=== PATIENT | male | born 1935 | race African-American/Black ===

== ENCOUNTER 2017-08-27 17:31 | Emergency (ER) | payer MEDICARE ==
[~2017-08-27] VITALS: Ht 170.2 cm; Wt 90.0 kg
[~2017-08-27 17:31] MED LIST: OMEP20TA PO; TAMS0.4C67 PO; VERA120T3 PO
[2017-08-27 17:32] VITALS: BP 144/78; PULSE 95; RESP 16; TEMP 101.6; O2SAT 95
[2017-08-27] MEDS ORDERED: SODIUM CHLOR 0.9% 1000 ML INJ 1,000 ML IV SCH (17:42)
[2017-08-27 17:45] VITALS: O2SAT 96
[2017-08-27] MEDS ORDERED: TAMS0.4C4 PO (17:50)
[2017-08-27] MEDS ORDERED: OMEP20TA93 PO (17:50)
[2017-08-27] MEDS ORDERED: VERA1TAB17 PO (17:50)
[2017-08-27] MEDS ORDERED: ACETAMINOPHEN 325 MG TAB PO ONE (18:00)
--- NOTE | 2017-08-27 18:23 | PD ---
HPI Chief Complaint: General Weakness Time Seen by Provider: 17:41 Travel History International Travel<30 days: No Contact w/Intl Traveler<30days: No Traveled to known affect area: No History of Present Illness HPI 81-year-old male that presents to the ED for evaluation of fever and generalized weakness. Per patient he's been feeling "sick" for about 2 days now. He denies any cough or runny nose. He denies any other medical issues. Patient has bodyaches and pain in his muscles in his legs. He states that he will was seen by urologist recently and was told that he might have a urinary infection worker she was treated for this. 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 He has had no recent chemotherapy or radiation. Denies any sick contacts. He denies any other symptoms other than just feeling sick. He denies any abdominal pain. She is in bowel movement or urine. No recent travel. No chest pain or shortness of breath. No abdominal pain. Per patient the discomfort to his legs is 4 out of 10. He was told that he has an enlarged prostate but on his last recheck about a month ago he has had no issues other than problems with urine which are chronic for him. He denies any new medications. Other medical issues at this time. PFSH Past Medical History Arthritis: Yes Blood Disorders: No Cancer: Yes (LEUKEMIA) Cardiovascular Problems: Yes Chemotherapy: Yes (06/2014) Coronary Artery Disease: Yes Diabetes: Yes Diminished Hearing: No Gastrointestinal Disorders: Yes (GERD, ENLARGED SPLEEN) GERD: Yes Genitourinary: Yes (BPH) Hiatal Hernia: Yes Hypertension: Yes Respiratory: Yes (SLEEP APNEA/ CPAP) Sleep Apnea: Yes PNEUMOCCOCAL Vaccine (Year): 2008 Past Surgical History Other Surgery: Yes Social History Alcohol Use: No Tobacco Use: No (1969 09 PPD) Substance Use: No Allergies-Medications (Allergen,Severity, Reaction): Coded Allergies: No Known Allergies (Verified , 08/22/14) Reported Meds & Prescriptions Reported Meds & Active Scripts Active Cipro (Ciprofloxacin HCl) 500 Mg Tab 500 Mg PO BID 10 Days Reported Verapamil ER 24 HR (Verapamil HCl) 240 Mg Tab 180 Mg PO HS Tamsulosin (Tamsulosin HCl) 0.4 Mg Cap 0.4 Mg PO HS Omeprazole 20 Mg Tab 20 Mg PO DAILY Review of Systems Except as stated in HPI: all other systems reviewed are Neg Physical Exam Narrative GENERAL: SKIN: Warm and dry. HEAD: Atraumatic. Normocephalic. EYES: Pupils equal and round. No scleral icterus. No injection or drainage. ENT: No nasal bleeding or discharge. Mucous membranes pink and moist. Tongue is midline. No uvula deviation. TMs are clear with no sign of infection or perforation. No lymphadenopathy noted. Tonsils are normal and not swollen. NECK: Trachea midline. No JVD. CARDIOVASCULAR: Regular rate and rhythm. No murmurs, S3, S4. RESPIRATORY: No accessory muscle use. Clear to auscultation. Breath sounds equal bilaterally. GASTROINTESTINAL: Abdomen soft, non-tender, nondistended. Hepatic and splenic margins not palpable. MUSCULOSKELETAL: Extremities without clubbing, cyanosis, or edema. No obvious deformities. Full range of motion of the upper and lower extremities bilaterally. 2+ pulses bilaterally. NEUROLOGICAL: Awake and alert. No obvious cranial nerve deficits. Motor grossly within normal limits. Five out of 5 muscle strength in the arms and legs. Normal speech. PSYCHIATRIC: Appropriate mood and affect; insight and judgment normal. Data Data Last Documented VS Vital Signs Date Time Temp Pulse Resp B/P (MAP) Pulse Ox O2 Delivery O2 Flow Rate FiO2 08/27/17 20:31 99.1 08/27/17 19:07 89 18 99 Room Air Orders Orders Complete Blood Count With Diff (08/27/17 17:42) Comprehensive Metabolic Panel (08/27/17 17:42) Prothrombin Time / Inr (Pt) (08/27/17 17:42) Act Partial Throm Time (Ptt) (08/27/17 17:42) Urinalysis - C+S If Indicated (08/27/17 17:42) Iv Access Insert/Monitor (08/27/17 17:42) Ecg Monitoring (08/27/17 17:42) Oximetry (08/27/17 17:42) Sodium Chlor 0.9% 1000 Ml Inj (Ns 1000 M (08/27/17 17:42) Blood Culture (08/27/17 17:42) Lactic Acid Sepsis Protocol (08/27/17 17:42) Chest, Single Ap (08/27/17 ) Influenzae A/B Antigen (08/27/17 17:45) Acetaminophen (Tylenol) (08/27/17 18:00) Cath For Specimen (08/27/17 19:20) Urine Culture (08/27/17 19:04) Ciprofloxacin 400 Mg Premix (Cipro 400 M (08/27/17 20:30) Ed Discharge Order (08/27/17 20:23) Labs Laboratory Tests Test 08/27/17 17:53 08/27/17 17:55 08/27/17 19:04 Lactic Acid Level 1.3 mmol/L White Blood Count 12.7 TH/MM3 Red Blood Count 4.11 MIL/MM3 Hemoglobin 13.3 GM/DL Hematocrit 38.3 % Mean Corpuscular Volume 93.2 FL Mean Corpuscular Hemoglobin 32.4 PG Mean Corpuscular Hemoglobin Concent 34.8 % Red Cell Distribution Width 14.3 % Platelet Count 115 TH/MM3 Mean Platelet Volume 10.0 FL Neutrophils (%) (Auto) 83.4 % Lymphocytes (%) (Auto) 7.4 % Monocytes (%) (Auto) 9.1 % Eosinophils (%) (Auto) 0.0 % Basophils (%) (Auto) 0.1 % Neutrophils # (Auto) 10.6 TH/MM3 Lymphocytes # (Auto) 0.9 TH/MM3 Monocytes # (Auto) 1.2 TH/MM3 Eosinophils # (Auto) 0.0 TH/MM3 Basophils # (Auto) 0.0 TH/MM3 CBC Comment DIFF FINAL Differential Comment Prothrombin Time 11.2 SEC Prothromb Time International Ratio 1.1 RATIO Activated Partial Thromboplast Time 31.3 SEC Blood Urea Nitrogen 14 MG/DL Creatinine 1.07 MG/DL Random Glucose 129 MG/DL Total Protein 7.4 GM/DL Albumin 3.9 GM/DL Calcium Level 8.7 MG/DL Alkaline Phosphatase 64 U/L Aspartate Amino Transf (AST/SGOT) 14 U/L Alanine Aminotransferase (ALT/SGPT) 27 U/L Total Bilirubin 1.4 MG/DL Sodium Level 138 MEQ/L Potassium Level 3.7 MEQ/L Chloride Level 107 MEQ/L Carbon Dioxide Level 23.6 MEQ/L Anion Gap 7 MEQ/L Estimat Glomerular Filtration Rate 80 ML/MIN Urine Color YELLOW Urine Turbidity CLEAR Urine pH 6.0 Urine Specific [place] 1.014 Urine Protein TRACE mg/dL Urine Glucose (UA) NEG mg/dL Urine Ketones NEG mg/dL Urine Occult Blood TRACE Urine Nitrite NEG Urine Bilirubin NEG Urine Urobilinogen LESS THAN 2.0 MG/DL Urine Leukocyte Esterase LARGE Urine RBC 3 /hpf Urine WBC 68 /hpf Urine WBC Clumps RARE Urine Squamous Epithelial Cells <1 /hpf Urine Bacteria MANY /hpf Urine Hyaline Casts 1 /lpf Urine Mucus FEW /lpf Microscopic Urinalysis Comment CULTURE INDICATED MDM Medical Decision Making Medical Screen Exam Complete: Yes Emergency Medical Condition: Yes Medical Record Reviewed: Yes Interpretation(s) CBC & BMP Diagram 08/27/17 17:55 Total Protein 7.4, Albumin 3.9, Calcium Level 8.7, Alkaline Phosphatase 64, Aspartate Amino Transf (AST/SGOT) 14 L, Alanine Aminotransferase (ALT/SGPT) 27, Total Bilirubin 1.4 H lactic acid WNL UA negative Differential Diagnosis Sepsis versus fever versus UTI versus urosepsis versus influenza versus pneumonia Narrative Course 81-year-old male that presents to the ED for evaluation of fever and weakness. Patient was properly examined and was found to have signs and symptoms of unclear etiology but concerning for sepsis. Labs and imaging ordered. Patient given Tylenol here for his fever. Labs and imaging showed what appears to be UTI with slight leukocytosis. Case was discussed in my attending who agrees with plan. Fever came down with Tylenol. Patient was given prescription for Cipro and a dose of this here. Patient agrees with this plan. Family agrees with this. Told to follow closely with PCP. See ED worsening symptoms. Diagnosis Primary Impression: UTI (urinary tract infection) Qualified Codes: N30.00 - Acute cystitis without hematuria Patient Instructions: General Instructions Additional Instructions: Take medication as prescribed. Drink plenty of fluids. Take Tylenol or Motrin for the fever every 6 hours as needed. See ED worsening symptoms. Med/Other Pt SpecificInfo: Prescription(s) given Scripts Ciprofloxacin (Cipro) 500 Mg Tab 500 MG PO BID for Infection for 10 Days, #20 TAB 0 Refills Prov: Rip Ramsay MD 08/27/17 Disposition: 01 DISCHARGE HOME Condition: Stable Ramon Liriano Aug 27, 2017 18:23
[2017-08-27 18:26] LABS: AUTOMATED NEUTROPHIL # 10.6 TH/MM3 (1.8-7.7); BASOPHIL % 0.1 % (0.0-2.0); HEMATOCRIT 38.3 % (39.0-51.0); HEMOGLOBIN 13.3 GM/DL (13.0-17.0); LYMPH % 7.4 % (9.0-44.0); LYMPHOCYTE # 0.9 TH/MM3 (1.0-4.8); MEAN CELL VOLUME 93.2 FL (80.0-100.0); MEAN CORPUSCULAR HEMOGLOBIN 32.4 PG (27.0-34.0); MEAN CORPUSCULAR HGB CONC 34.8 % (32.0-36.0); MONO % 9.1 % (0.0-8.0); MONOCYTE # 1.2 TH/MM3 (0-0.9); NEUT % 83.4 % (16.0-70.0); PLATELET COUNT 115 TH/MM3 (150-450); RED BLOOD COUNT 4.11 MIL/MM3 (4.50-5.90); RED CELL DISTRIBUTION WIDTH 14.3 % (11.6-17.2); WHITE BLOOD COUNT 12.7 TH/MM3 (4.0-11.0)
[2017-08-27 18:29] LABS: INTERNATIONAL NORMALIZED RATIO 1.1 RATIO; PROTHROMBIN TIME - PATIENT 11.2 SEC (9.8-11.6)
--- NOTE | 2017-08-27 18:31 | RADRPT ---
EXAM DATE/TIME: 08/27/2017 17:51 [facility] COMPARISON: CHEST SINGLE AP, January 10, 2016, 16:06. INDICATIONS : Cough, short of breath. MEDICAL HISTORY : None. SURGICAL HISTORY : None. ENCOUNTER: Initial ACUITY: 1 day PAIN SCORE: 0/10 LOCATION: Bilateral chest FINDINGS: Single AP view of the chest. The lungs are clear. Cardiomediastinal silhouette within normal limits. No evidence of pleural effusion or pneumothorax. CONCLUSION: No acute cardiopulmonary disease identified. Rancho Espino MD on August 27, 2017 at 18:29 Board Certified Radiologist. This report was verified electronically.
[2017-08-27 18:46] LABS: ALBUMIN 3.9 GM/DL (3.4-5.0); ALT (GPT) 27 U/L (12-78); AST (GOT) 14 U/L (15-37); BICARBONATE 23.6 MEQ/L (21.0-32.0); BLOOD UREA NITROGEN 14 MG/DL (7-18); CALCIUM 8.7 MG/DL (8.5-10.1); CHLORIDE 107 MEQ/L (98-107); CREATININE 1.07 MG/DL (0.60-1.30); GLOMERULAR FILTRATION RATE 80 ML/MIN (>89); GLUCOSE,RANDOM 129 MG/DL (74-106); SODIUM (NA) 138 MEQ/L (136-145)
[2017-08-27 18:48] LABS: ALKALINE PHOSPHATASE 64 U/L (45-117); TOTAL BILIRUBIN ADULT 1.4 MG/DL (0.2-1.0); TOTAL PROTEIN 7.4 GM/DL (6.4-8.2)
[2017-08-27 19:07] VITALS: BP 160/89; PULSE 89; RESP 18; O2SAT 99
[2017-08-27 19:56] LABS: BACTERIA, URINE MANY /hpf; BILIRUBIN, URINE NEG (NEG); BLOOD, URINE TRACE (NEG); GLUCOSE,URINE NEG (NEG); HYALINE CAST, URINE 1 /lpf (RARE); KETONE, URINE NEG (NEG); MUCUS URINE FEW /lpf (OCC); NITRITE,URINE NEG (NEG); SQUAMOUS EPITHELIAL CELL URINE <1 /hpf (0-5); URINE COLOR YELLOW (YELLW/STRAW); URINE LEUKOCYTE ESTERASE LARGE (NEG); WHITE BLOOD CELL CLUMPS RARE
[2017-08-27] MEDS ORDERED: CIPR-9 PO (20:22)
[2017-08-27] MEDS ORDERED: CIPROFLOXACIN 400 MG PREMIX 200 ML IV ONE (20:30)
[2017-08-27 20:31] VITALS: TEMP 99.1
== END 2017-08-27 22:17 | disposition home or self-care (01) ==
LOC: NEPE 17:31
DX: N30.00 Acute cystitis without hematuria (principal); B96.20 Unspecified Escherichia coli [E. coli] as the cause of diseases classified elsewhere; K21.9 Gastro-esophageal reflux disease without esophagitis; C91.41 Hairy cell leukemia, in remission; I25.10 Atherosclerotic heart disease of native coronary artery without angina pectoris
CPT/HCPCS: 71010; 80053; 81001; 83605; 85025; 85610; 85730; 87040; 87077; 87086; 87186; 87804; 96361; 96374; 99284; J0744; J7030

== ENCOUNTER 2018-02-09 17:48 | Emergency (ER) | payer MEDICARE ==
[~2018-02-09] VITALS: Ht 170.2 cm; Wt 90.0 kg
[~2018-02-09 17:48] MED LIST changes: +CIPR-9 PO; -OMEP20TA PO; +OMEP20TA93 PO; +TAMS0.4C4 PO; -TAMS0.4C67 PO; -VERA120T3 PO; +VERA1TAB17 PO
[2018-02-09 17:55] VITALS: BP 151/82; PULSE 80; RESP 16; TEMP 98.7; O2SAT 97
[2018-02-09] MEDS ORDERED: PRED1SUS RIGHT EYE (19:34)
--- NOTE | 2018-02-09 19:34 | PD ---
HPI Chief Complaint: Eye Problems/Injury Time Seen by Provider: 18:47 Travel History International Travel<30 days: No Contact w/Intl Traveler<30days: No Traveled to known affect area: No History of Present Illness HPI 82-year-old male complains of pain swelling right eye for the past 2 days. Patient status post cataract surgery December 04, [address] Singletary. Patient had pain and swelling of the right eye post surgery. Patient was given prescription for TobraDex to use 4 times a day and decrease to 3 times a day and then 2 times a day. Patient stopped the eyedrop after 1 month and he had recurrence of pain and swelling the right eye subsequently. Patient was put back on Tobradex again for the past month. Patient stopped TobraDex 2 days ago and started having pain and swelling the right eye since yesterday. Patient complained of mild aching pain from the right eye also. Patient denies any visual change. Patient denies any photophobia. Patient denies any headache. Patient denies any nausea vomiting. Patient has history of hairy cell leukemia in remission. Patient also has history of bladder outlet obstruction, coronary artery disease, diabetes type 2, hypertension, sleep apnea, vertigo. PFSH Past Medical History Arthritis: Yes Blood Disorders: No Cancer: Yes (LEUKEMIA) Cardiovascular Problems: Yes Chemotherapy: Yes (06/2014) Coronary Artery Disease: Yes Diabetes: Yes Patient Takes Glucophage: No Diminished Hearing: No Gastrointestinal Disorders: Yes (GERD, ENLARGED SPLEEN) GERD: Yes Genitourinary: Yes (BPH) Hiatal Hernia: Yes Hypertension: Yes Respiratory: Yes (SLEEP APNEA/ CPAP) Sleep Apnea: Yes PNEUMOCCOCAL Vaccine (Year): 2008 Past Surgical History Other Surgery: Yes Social History Alcohol Use: No Tobacco Use: No (1969 09 PPD) Substance Use: No Allergies-Medications (Allergen,Severity, Reaction): Coded Allergies: No Known Allergies (Verified , 08/22/14) Reported Meds & Prescriptions Reported Meds & Active Scripts Active Cipro (Ciprofloxacin HCl) 500 Mg Tab 500 Mg PO BID 10 Days Reported Verapamil ER 24 HR (Verapamil HCl) 240 Mg Tab 180 Mg PO HS Tamsulosin (Tamsulosin HCl) 0.4 Mg Cap 0.4 Mg PO HS Omeprazole 20 Mg Tab 20 Mg PO DAILY Review of Systems General / Constitutional: No: Fever Eyes: Positive: Pain, Tearing, No: Visual changes HENT: No: Headaches Cardiovascular: No: Chest Pain or Discomfort Respiratory: No: Shortness of Breath Gastrointestinal: No: Abdominal Pain Genitourinary: No: Dysuria Musculoskeletal: No: Pain Skin: No Rash Neurologic: No: Weakness Psychiatric: No: Depression Endocrine: No: Polydipsia Hematologic/Lymphatic: No: Easy Bruising Physical Exam Narrative GENERAL: Well-nourished, well-developed patient. SKIN: Focused skin assessment warm/dry. HEAD: Normocephalic. EYES: Mild conjunctival erythematous right eye. Mild tearing noted. Postsurgical change right pupil. Pressure 30 right eye. Patient has mild soft tissue swelling tenderness periorbital area right eye. NECK: Supple, trachea midline. No JVD or lymphadenopathy. CARDIOVASCULAR: Regular rate and rhythm without murmurs, gallops, or rubs. RESPIRATORY: Breath sounds equal bilaterally. No accessory muscle use. GASTROINTESTINAL: Abdomen soft, non-tender, nondistended. MUSCULOSKELETAL: No cyanosis, or edema. BACK: Nontender without obvious deformity. No CVA tenderness. Data Data Last Documented VS Vital Signs Date Time Temp Pulse Resp B/P (MAP) Pulse Ox O2 Delivery O2 Flow Rate FiO2 02/09/18 17:55 98.7 80 16 151/82 (105) 97 Orders Orders Ed Discharge Order (02/09/18 19:18) MDM Medical Decision Making Medical Screen Exam Complete: Yes Emergency Medical Condition: Yes Differential Diagnosis Differential diagnosis including postop eye irritation, conjunctivitis, episcleritis, periorbital cellulitis. Narrative Course 82-year-old male with recurrent pain swelling right eye and tearing from the right eye. Status post right eye cataract surgery. I spoke with Dr. Quach, ophthalmology on-call for the facility and. Advised Pred Forte eyedrop and follow-up with him in the office in 3 days. Diagnosis Primary Impression: Pain around right eye Additional Impression: Status post cataract surgery Qualified Codes: Z98.41 - Cataract extraction status, right eye Additional Instructions: Pred forte every 1 hours until midnight tonight. Pred forte eyedrops 4 times a day starting tomorrow. Follow-up with overhead distribution engineer in 3 days. Call Monday for appointment. Med/Other Pt SpecificInfo: Prescription(s) given Scripts Prednisolone Acetate Opth 1% (Pred Forte Opth 1%) 1% Susp 1 DROP RIGHT EYE QID for Inflammation, #1 BOTTLE 0 Refills Prov: Alonzo Ibarra MD 02/09/18 Disposition: 01 DISCHARGE HOME Condition: Stable Alonzo Ibarra MD Feb 09, 2018 19:34
== END 2018-02-09 19:48 | disposition home or self-care (01) ==
LOC: NEPD 17:48
DX: H57.8 Other specified disorders of eye and adnexa (principal); C91.41 Hairy cell leukemia, in remission; K21.9 Gastro-esophageal reflux disease without esophagitis; Z98.41 Cataract extraction status, right eye
CPT/HCPCS: 99283

== ENCOUNTER 2018-09-09 15:54 | Observation (INO) ==
--- NOTE | 2018-09-09 17:01 | ED ---
HPI General Chief Complaint: Chest Pain Stated Complaint: chest pain Time Seen by Provider: 09/09/18 16:02 Source: patient Mode of arrival: EMS Limitations: no limitations History of Present Illness HPI narrative: Patient is a 82-year-old male, past medical history significant for hypertension, reflux, previous [place] approximately 40 years ago, who presents with complaint of lower substernal/epigastric heaviness pain that began while doing nothing in particular. He took an omeprazole without relief. He then received 4 baby aspirin and states he no longer has pain. He denies dyspnea. He denies numbness, weakness. He denies cough, congestion. He denies leg swelling or immobilization. complaint: Reports chest pain STEMI Alert: No Onset (ago): hour(s) Duration: intermittent and now resolved Onset: during rest Pain location: Reports substernal and epigastric Severity: moderate Quality: Reports heaviness Pain radiation: Reports none Relieving factors: nothing Exacerbating factors: nothing Treatments prior to arrival chest pain: Reports aspirin Related Data Home Medications Medication Instructions Recorded Confirmed metformin 500 mg PO DAILY 09/09/18 09/09/18 omeprazole 20 mg PO DAILY 09/09/18 09/09/18 rosuvastatin 5 mg PO DAILY 09/09/18 09/09/18 tamsulosin 0.4 mg PO QPM 09/09/18 09/09/18 verapamil 180 mg PO DAILY 09/09/18 09/09/18 Allergies Allergy/AdvReac Type Severity Reaction Status Date / Time No Known Allergies Allergy Verified 09/09/18 16:13 Review of Systems ROS: all other systems reviewed are negative [facility] Medical History Medical History GERD (gastroesophageal reflux disease) (Acute) Hypertension (Acute) Myocardial infarction (Acute) Social History Social History Substance History: No History of Abuse Smoking Status: Former smoker Tobacco Type: Cigarettes How Often Do You Have a Drink Containing Alcohol: Monthly or less Immunization History Tetanus Immunization: Unsure Exam Narrative Exam Narrative: GENERAL: Well-appearing male in no acute distress SKIN: Focused skin assessment warm/dry. No rashes. HEAD: Atraumatic. Normocephalic. EYES: Pupils equal and round. No scleral icterus. No injection or drainage. ENT: No nasal bleeding or discharge. Mucous membranes pink and moist. NECK: Trachea midline. No JVD. CARDIOVASCULAR: Regular rate and rhythm. No murmur appreciated. Intact and equal peripheral pulses. RESPIRATORY: No accessory muscle use. Clear to auscultation. Breath sounds equal bilaterally. GASTROINTESTINAL: Abdomen soft, non-tender, nondistended. Hepatic and splenic margins not palpable. MUSCULOSKELETAL: No obvious deformities. No clubbing. No cyanosis. No edema. NEUROLOGICAL: Awake and alert. No obvious cranial nerve deficits. Motor grossly within normal limits. Normal sensation. Normal speech. PSYCHIATRIC: Appropriate mood and affect; insight and judgment normal. Course Initial Documented Vital Signs Temperature 98.4 F 09/09/18 16:08 Pulse Rate 86 09/09/18 16:08 Respiratory Rate 20 09/09/18 16:08 Blood Pressure 169/83 H 09/09/18 16:08 Pulse Oximetry 98 09/09/18 16:08 Last Documented Vital Signs Temperature 98.4 F 09/09/18 16:08 Pulse Rate 80 09/09/18 16:59 Respiratory Rate 19 09/09/18 16:59 Blood Pressure 136/86 09/09/18 16:59 Pulse Oximetry 98 09/09/18 16:59 Medical Decision Making MDM Narrative Medical decision making narrative: Patient is an 82-year-old male with history of previous [place] who presents with complaint of chest pain that is no longer present on arrival. He did receive aspirin prior to arrival. He has been hemodynamically stable in the emergency department. Chest x-ray was unremarkable and labs including initial troponin were also unremarkable. He has been placed in the chest pain center for further evaluation and management to rule out acute coronary syndrome. Medical Screen Exam Complete: Yes Emergency Medical Condition: Yes Differential Diagnosis Differential Diagnosis: Differential diagnosis includes but is not limited to acute coronary syndrome, pneumonia, reflux. Medical Records Medical records reviewed: Yes I reviewed the patient's medical records. Lab Data Lab results reviewed: Yes I reviewed the patient's lab results. Result diagrams: 09/09/18 16:03 09/09/18 16:03 Lab Results 09/09/18 09/09/18 09/09/18 Range/Units 16:03 16:03 16:03 WBC 4.6 (4.0-11.0) th/mm3 RBC 3.91 L (4.50-5.90) mil/mm3 Hgb 12.8 L (13.0-17.0) gm/dL Hct 37.1 L (39.0-51.0) % MCV 94.9 (80.0-100.0) fL MCH 32.8 (27.0-34.0) pg MCHC 34.6 (32.0-36.0) % RDW 14.8 (11.6-17.2) % Plt Count 137 L (150-450) th/mm3 MPV 10.4 (7.0-11.0) fL Neut % (Auto) 59.9 (16.0-70.0) % Lymph % (Auto) 25.0 (9.0-44.0) % [place] % (Auto) 11.6 H (0.0-8.0) % Eos % (Auto) 3.1 (0.0-4.0) % Baso % (Auto) 0.4 (0.0-2.0) % Neut # (Auto) 2.7 (1.8-7.7) th/mm3 Lymph # (Auto) 1.1 (1.0-4.8) th/mm3 [place] # (Auto) 0.5 (0.0-0.9) th/mm3 Eos # (Auto) 0.1 (0.0-0.4) th/mm3 Baso # (Auto) 0.0 (0.0-0.2) th/mm3 WBC Differential . Differential Comment Auto diff final Sodium 142 (136-145) meq/L Potassium 4.4 (3.5-5.1) meq/L Chloride 111 H (98-107) meq/L Carbon Dioxide 25.1 (21.0-32.0) meq/L Anion Gap 6 (5-15) meq/L BUN 14 (7-18) mg/dL Creatinine 1.09 (0.60-1.30) mg/dL Estimated GFR 78 L (>89) mL/min Random Glucose 90 (74-106) mg/dL Calcium 8.6 (8.5-10.1) mg/dL Total Bilirubin 0.7 (0.2-1.0) mg/dL AST 36 (15-37) U/L ALT 32 (12-78) U/L Alkaline Phosphatase 65 (45-117) U/L Troponin I Less than 0.02 L (0.02-0.05) ng/mL B-Natriuretic Peptide 9 (0-100) pg/mL Total Protein 7.2 (6.4-8.2) g/dL Albumin 3.7 (3.4-5.0) g/dL Imaging Data Radiologist's impression: Chest X-Ray 09/09/18 16:12 CONCLUSION: No acute cardiopulmonary disease identified. ECG Data EKG Prior to Arrival: No Attestation: I personally reviewed and interpreted this ECG as follows: (Sinus rhythm at a rate of 87 bpm. There is diffuse T wave flattening but no other ST or T wave changes.) Discharge Plan Discharge Disposition Patient Disposition: ED Admit(ED Internal Use Only) Discharge Condition Condition: Stable Discharge Order Discharge Orders: ED Use Only Admit Order (Routine); Ordered 09/09/18 Ordered By: Lizy Bradshaw Discharge Details Diagnosis: Chest pain, rule out acute myocardial infarction Physicians Team ED Provider: Lizy Bradshaw Primary Care Provider: Seema Todd Attending Provider: Gopi Boo Discharge Interventions Interventions: Vital Signs Last Done: 09/09/18 16:13 Status ED Status: Admitted Observation Patient
[2018-09-09 17:14] LABS: Baso % (Auto) 0.4 % (0.0-2.0); Eos # (Auto) 0.1 th/mm3 (0.0-0.4); Eos % (Auto) 3.1 % (0.0-4.0); Hematocrit 37.1 % (39.0-51.0); Hemoglobin 12.8 gm/dL (13.0-17.0); Lymph # (Auto) 1.1 th/mm3 (1.0-4.8); Mean Corpuscular HGB Conc 34.6 % (32.0-36.0); Mean Corpuscular Hemoglobin 32.8 pg (27.0-34.0); Mean Corpuscular Volume 94.9 fL (80.0-100.0); Mean Platelet Volume 10.4 fL (7.0-11.0); Mono # (Auto) 0.5 th/mm3 (0.0-0.9); Mono % (Auto) 11.6 % (0.0-8.0); Neut # (Auto) 2.7 th/mm3 (1.8-7.7); Neut % (Auto) 59.9 % (16.0-70.0); Platelet Count 137 th/mm3 (150-450); Red Blood Count 3.91 mil/mm3 (4.50-5.90); Red Cell Distribution Width 14.8 % (11.6-17.2); White Blood Count 4.6 th/mm3 (4.0-11.0)
--- NOTE | 2018-09-09 17:17 | XR ---
EXAM DATE: 09/09/2018 5:11 PM EST AGE/SEX: 82 years / Male INDICATIONS: . Short of breath CLINICAL DATA: This is the patient's initial encounter. Patient reports that signs and symptoms have been present for 1 day and indicates a pain score of 0/10. MEDICAL/SURGICAL HISTORY: Cardiovascular disease. None. COMPARISON: [facility], CHEST SINGLE AP, 08/27/2017. . FINDINGS: PA and lateral views of the chest. The lungs are clear. Cardiomediastinal silhouette withi n normal limits. No evidence of pleural effusion or pneumothorax. CONCLUSION: No acute cardiopulmonary disease identified. Electronically signed by: Rancho Espino MD Board Certified Radiologist 09/09/2018 5:16 PM EST
[2018-09-09 17:29] LABS: Alanine Aminotransferase 32 U/L (12-78)
[2018-09-09 17:30] LABS: Albumin 3.7 g/dL (3.4-5.0); Anion Gap 6 meq/L (5-15); Aspartate Aminotransferase 36 U/L (15-37); Blood Urea Nitrogen 14 mg/dL (7-18); Calcium 8.6 mg/dL (8.5-10.1); Carbon Dioxide 25.1 meq/L (21.0-32.0); Chloride 111 meq/L (98-107); Glomerular Filtration Rate 78 mL/min (>89); Glucose,Random 90 mg/dL (74-106); Potassium 4.4 meq/L (3.5-5.1); Sodium 142 meq/L (136-145)
[2018-09-09 17:33] LABS: Alkaline Phosphatase 65 U/L (45-117); Total Protein 7.2 g/dL (6.4-8.2)
[2018-09-09 23:38] LABS: Creatine Kinase 207 U/L (39-308)
--- NOTE | 2018-09-10 08:18 | P.HPCA ---
History of Present Illness Primary Care Physician: Seema Todd MD Chief Complaint: Chest pain History of Present Illness: 82 year old male with history of hypertension, GERD, BPH, leukemia (in remission ), and type 2 diabetes presents emergency room for further evaluation chest pain. Onset yesterday afternoon 2:30 p.m. Nonexertional. Location substernal. Characterized as a heavy pressure. No radiation. Duration 30-45 minutes. Associated symptoms included mild dyspnea. Denied nausea or diaphoresis. No precipitating factors. Relieving factors moving around. Endorses similar pain approximately 40 years ago. At that time reports [address] light lamp cleaner told him he had a heart attack and another street light lamp cleaner stated he did not. Was admitted in the ICU for 3 days. Denies being prescribed medication upon discharge and states "my heart has been fine for 30 years." No recent illness, fever, or injury. No current chest pain. Past cardiac testing No recent cardiac testing. Remote catheterizations. No known coronary artery disease. Social history Known hypertension, type 2 diabetes, and hyperlipidemia. Lifelong non-smoker. Denies any alcohol or recreational drug use. Endorses an active lifestyle. - Diagnosis (1) Chest pain, rule out acute myocardial infarction (2) Type 2 diabetes mellitus (3) Hypertension (4) GERD (gastroesophageal reflux disease) (5) Hyperlipidemia Review of Systems All other systems reviewed negative except as stated in HPI PMFSH - History History Provided By: Patient - Medical History Medical History: Medical History (Last Reviewed 09/10/18 @ 12:24 by DOLLY Houston) GERD (gastroesophageal reflux disease) Hairy cell leukemia Hyperlipidemia Hypertension Myocardial infarction Sleep apnea Type 2 diabetes mellitus Vertigo - Tobacco History Second Hand Smoke Exposure: No Tobacco Use In Past 30 Days: No Smoking Status: Former smoker Tobacco Type: Cigarettes - Alcohol History How Often Do You Have a Drink Containing Alcohol: Never - Substance Use History Substance History: No History of Abuse - Immunization History Tetanus Immunization: Unsure Medications and Allergies Active Medications: Active Medications Sodium Chloride (Ns Flush) 2 ml IV.FLUSH UNSCH PRN PRN Reason: FLUSH AFTER USING IV ACCESS Sodium Chloride (Ns Flush) 2 ml IV.FLUSH BID ERICA Last Admin: 09/09/18 22:06 Dose: 2 ml Sodium Chloride (Ns Flush) 2 ml IV.FLUSH PRN PRN PRN Reason: FLUSH AFTER USING IV ACCESS Allergies Allergy/AdvReac Type Severity Reaction Status Date / Time No Known Allergies Allergy Verified 09/09/18 16:13 Home Medications Medication Instructions Recorded Confirmed Type metformin 500 mg PO DAILY 09/09/18 09/09/18 History omeprazole 20 mg PO DAILY 09/09/18 09/09/18 History rosuvastatin 5 mg PO DAILY 09/09/18 09/09/18 History tamsulosin 0.4 mg PO QPM 09/09/18 09/09/18 History verapamil 180 mg PO DAILY 09/09/18 09/09/18 History Exam Vital signs: Vital Signs 09/09/18 16:08 09/09/18 16:13 09/09/18 16:49 Temperature 98.4 F Pulse Rate 86 76 90 Respiratory Rate 20 18 18 Blood Pressure 169/83 H 132/88 189/83 H Pulse Oximetry 98 98 97 09/09/18 16:59 09/09/18 19:41 09/09/18 21:47 Temperature 97.7 F Pulse Rate 80 81 60 Respiratory Rate 19 17 18 Blood Pressure 136/86 160/68 H 159/74 H Pulse Oximetry 98 98 97 09/10/18 00:00 09/10/18 04:30 Temperature 98.3 F 98.0 F Pulse Rate 57 L 49 L Respiratory Rate Blood Pressure 140/66 150/67 H Pulse Oximetry 95 97 Intake & Output 09/09/18 09/10/18 09/10/18 18:59 06:59 18:59 Weight 81.647 kg 81.64 kg Other: Date of Last Bowel Movement 09/09/18 Weight On Admission 81.64 kg Narrative: GENERAL: Alert WN, WD, NAD, very pleasant, elderly -Israeli male HEAD: NC, AT EYES: Sclera clear, conjunctiva without injection CV: RRR, without murmur, rub, gallop, no JVD, S1-S2. RESP: Clear lungs throughout bilateral, no crackles, wheeze, rhonchi, symmetrical chest rise, nonlabored, able to speak in full sentences ABD: Soft, NT, ND, no masses, positive bowel tones EXT: Pulses +2x4, no dependent edema MS: Normal tone x4 extremities, nontender, no obvious deformities, full range of motion NEURO: Motor strength 5/5, gait WNL PSYCH: A+O x3, pleasant affect, appropriate speech, mood, insight and judgment SKIN: Normal turgor, normal texture, no lesions, no rashes, even hair distribution Results 09/09/18 16:03 09/09/18 16:03 Cardiac Enzymes 09/09/18 09/09/18 09/09/18 Range/Units 16:03 16:03 19:15 AST 36 (15-37) U/L Troponin I Less than 0.02 L Less than 0.02 L (0.02-0.05) ng/mL B-Natriuretic Peptide 9 (0-100) pg/mL 09/09/18 Range/Units 23:00 AST (15-37) U/L Troponin I Less than 0.02 L (0.02-0.05) ng/mL B-Natriuretic Peptide (0-100) pg/mL Coagulation 09/09/18 Range/Units 16:03 B-Natriuretic Peptide 9 (0-100) pg/mL CBC 09/09/18 Range/Units 16:03 WBC 4.6 (4.0-11.0) th/mm3 RBC 3.91 L (4.50-5.90) mil/mm3 Hgb 12.8 L (13.0-17.0) gm/dL Hct 37.1 L (39.0-51.0) % Plt Count 137 L (150-450) th/mm3 Neut # (Auto) 2.7 (1.8-7.7) th/mm3 Lymph # (Auto) 1.1 (1.0-4.8) th/mm3 Garfield # (Auto) 0.5 (0.0-0.9) th/mm3 Eos # (Auto) 0.1 (0.0-0.4) th/mm3 Baso # (Auto) 0.0 (0.0-0.2) th/mm3 Comprehensive Metabolic Panel 09/09/18 Range/Units 16:03 Sodium 142 (136-145) meq/L Potassium 4.4 (3.5-5.1) meq/L Chloride 111 H (98-107) meq/L Carbon Dioxide 25.1 (21.0-32.0) meq/L BUN 14 (7-18) mg/dL Creatinine 1.09 (0.60-1.30) mg/dL Calcium 8.6 (8.5-10.1) mg/dL AST 36 (15-37) U/L ALT 32 (12-78) U/L Alkaline Phosphatase 65 (45-117) U/L Total Protein 7.2 (6.4-8.2) g/dL Albumin 3.7 (3.4-5.0) g/dL Intake and Output 09/09/18 09/10/18 09/10/18 22:59 06:59 14:59 Other: Date of Last Bowel Movement 09/09/18 Weight 81.64 kg Weight On Admission 81.64 kg - Imaging and Cardiology Imaging: Impressions Chest X-Ray 09/09/18 16:12 CONCLUSION: No acute cardiopulmonary disease identified. EKG interpretations - Dysrhythmias Sinus rhythms and dysrhythmias: sinus bradycardia (< 50 bpm) (Nonspecific T wave changes) Caprini VTE Risk Assessment Caprini VTE Risk Assessment: Moderate/High Risk (score >= 2) Caprini Risk Assessment Model: Point Value = 1 Point Value = 2 Point Value = 3 Point Value = 5 Age 41-60 Minor surgery BMI > 25 kg/m2 Swollen legs Varicose veins or History of unexplained or recurrent spontaneous Oral contraceptives or hormone replacement Sepsis (< 1 month) Serious lung disease, including pneumonia (< 1 month) Abnormal pulmonary function Acute myocardial infarction Congestive heart failure (< 1 month) History of inflammatory bowel disease Medical patient at bed rest Age 61-74 Arthroscopic surgery Major open surgery (> 45 min) Laparoscopic surgery (> 45 min) Malignancy Confined to bed (> 72 hours) Immobilizing plaster cast Central venous access Age >= 75 History of VTE Family history of VTE Factor V Leiden Prothrombin [id number] Lupus anticoagulant Anticardiolipin antibodies Elevated serum homocysteine Heparin-induced thrombocytopenia Other congenital or acquired thrombophilia Stroke (< 1 month) Elective arthroplasty Hip, pelvis, or leg fracture Acute spinal cord injury (< 1 month) Prophylaxis Regimen: Total Risk Factor Score Risk Level Prophylaxis Regimen 0-1 Low Early ambulation 2 Moderate Order ONE of the following: *Sequential Compression Device (SCD) *Heparin 5000 units SQ BID 3-4 Higher Order ONE of the following medications: *Heparin 5000 units SQ TID *Enoxaparin/Lovenox 40 mg SQ daily (WT < 150 kg, CrCl > 30 mL/min) *Enoxaparin/Lovenox 30 mg SQ daily (WT < 150 kg, CrCl > 10-29 mL/min) *Enoxaparin/Lovenox 30 mg SQ BID (WT < 150 kg, CrCl > 30 mL/min) AND/OR *Sequential Compression Device (SCD) 5 or more Highest Order ONE of the following medications: *Heparin 5000 units SQ TID (Preferred with Epidurals) *Enoxaparin/Lovenox 40 mg SQ daily (WT < 150 kg, CrCl > 30 mL/min) *Enoxaparin/Lovenox 30 mg SQ daily (WT < 150 kg, CrCl > 10-29 mL/min) *Enoxaparin/Lovenox 30 mg SQ BID (WT < 150 kg, CrCl > 30 mL/min) AND *Sequential Compression Device (SCD) Assessment and Plan - Assessment (1) Chest pain, rule out acute myocardial infarction Code(s): R07.9 - Chest pain, unspecified Status: Acute Plan: Admitted chest pain center. ACS ruled out 3 sets of EKGs and cardiac enzymes. Seen and evaluated by Dr. Jose Sabillon. Proceed with exercise stress testing. If unremarkable, discharged home with follow-up with primary care provider. ETT completed, mild ST depression inferior laterally suggesting positive stress test. Discussed with Dr. Sabillon, proceed with lexican today. Discussed plan of care with patient. (2) Type 2 diabetes mellitus Code(s): E11.9 - Type 2 diabetes mellitus without complications Status: Chronic (3) Hypertension Code(s): I10 - Essential (primary) hypertension Status: Chronic (4) GERD (gastroesophageal reflux disease) Code(s): K21.9 - Gastro-esophageal reflux disease without esophagitis Status: Chronic (5) Hyperlipidemia Code(s): E78.5 - Hyperlipidemia, unspecified Status: Chronic H&P: Quality - VTE Deep Vein Thrombosis/Pulmonary Embolism Present on Admission: No (2) Type 2 diabetes mellitus Qualifiers: Diabetes mellitus remote computer terminal operator insulin use: without remote computer terminal operator use Diabetes mellitus complication status: with unspecified complications Qualified Code(s) : E11.8 - Type 2 diabetes mellitus with unspecified complications (3) Hypertension Qualifiers: Hypertension type: unspecified Qualified Code(s): I10 - Essential (primary) hypertension
[2018-09-10] MEDS ORDERED: Regadenoson Inj 0.4 MG/5 ML Syringe IV.PUSH ONE (11:10)
[2018-09-10 12:23] VITALS: PULSE 55
[2018-09-10] MEDS ORDERED: Pantoprazole Sodium 20 MG DR Tablet PO SCH (12:45)
[2018-09-10 12:46] VITALS: BP 156/70; RESP 18; TEMP 98.4; O2SAT 96
--- NOTE | 2018-09-10 15:31 | NM ---
EXAM DATE: 09/10/2018 3:07 PM EST AGE/SEX: 82 years / Male INDICATIONS:Angina. Myocardial infarction Substernal chest pain. CLINICAL DATA: This is the patient's initial encounter. Patient reports that signs and symptoms have been present for 1 day and indicates a pain score of 2/10. MEDICAL/SURGICAL HISTORY: Hypertension. Gastroesophageal reflux disease. Leukemia. None. COMPARISON: No prior exams available for comparison. DOSE: 8.5 mCi Tc 99m Myoview at rest 26.9 mCi [id number]-Yevvnlx at stress 0.4 mg Lexiscan STRESS SYMPTOMS: None. EJECTION FRACTION: 59 % TECHNIQUE: The patient underwent pharmacologic stress with infusion of prescribed dose. Continuous ECG tracing was monitored during stress. Gated SPECT imaging was performed after stress and conventi onal SPECT imaging was performed at rest. The examination was performed on a SPECT/CT scanner, both attenuation and non-corrected datasets were reviewed. FINDINGS: Distribution: The maximum perfused segment at stress is in the anterolateral wall. Perfusion Study: The pattern of perfusion at stress shows 20-30% redistribution in the high anterio r wall on the short axis and vertical long axis images. In addition, there is a focal area of 20-30% redistribution in the low anteroseptal wall. Findings are concerning for some ischemia in the LAD dis tribution. Fixed diminished perfusion to the apex suggesting apical thinning or old apical infarct. Gated Study: There are intact wall motion and wall thickening without hypokinetic or dyskinetic segm ents. The ejection fraction is calculated at 59%. RISK CATEGORY: Intermediate (1-3 % Annual Mortality Rate) CONCLUSION: 1. Scintigraphic findings concerning for some mild ischemia in the LAD distribution with 20-30% redi stribution in the high anterior wall and low anteroseptal wall. 2. Persistent diminished perfusion to the apex characteristic of apical thinning or old apical infar ct. 3. Adequate wall motion throughout with an estimated ejection fraction of 59%. Electronically signed by: David Rowland MD Board Certified Radiologist 09/10/2018 3:30 PM EST
--- NOTE | 2018-09-10 15:57 | ECG ---
Date Performed: 09/09/2018 Time Performed: 23:53:45 PTAGE: 82 years EKG: SINUS BRADYCARDIA NONSPECIFIC T-WAVE ABNORMALITY BORDERLINE ECG NO PREVIOUS TRACING DOCTOR: Jose Sabillon Interpretating Date/Time 09/10/2018 15:55:27
--- NOTE | 2018-09-10 15:58 | ECG ---
Date Performed: 09/09/2018 Time Performed: 19:15:16 PTAGE: 82 years EKG: Sinus rhythm MINIMAL VOLTAGE CRITERIA FOR LVH, CONSIDER NORMAL VARIANT ABNORMAL ECG PREVIOUS TRACING : 09/09/2018 16.22 Since previous tracing, no significant change noted DOCTOR: Jose Sabillon Interpretating Date/Time 09/10/2018 15:56:04
--- NOTE | 2018-09-10 15:58 | ECG ---
Date Performed: 09/09/2018 Time Performed: 16:22:38 PTAGE: 82 years EKG: Sinus rhythm MINIMAL VOLTAGE CRITERIA FOR LVH, CONSIDER NORMAL VARIANT BORDERLINE ECG PREVIOUS TRACING : 01/10/2016 15.45 Since previous tracing, no significant change noted DOCTOR: Jose Sabillon Interpretating Date/Time 09/10/2018 15:56:50
--- NOTE | 2018-09-10 15:59 | TR ---
Date Performed: 09/10/2018 Time Performed: 14:15:56 DOCTOR: Jose Sabillon DRUG LIST: CLINICAL HISTORY: REASON FOR TEST: REASON FOR ENDING: OBSERVATION: CONCLUSION: COMMENTS: Lexiscan stress test was performed under standard four minute protocol. Radionuclide was injected one minute prior to ending the test. No electrocardiographic abormalities were present t o suggest ischemia. Nuclear imaging and interpretation are pending.
--- NOTE | 2018-09-10 16:02 | TR ---
Date Performed: 09/10/2018 Time Performed: 10:13:03 DOCTOR: Jose Sabillon DRUG LIST: CLINICAL HISTORY: REASON FOR TEST: REASON FOR ENDING: OBSERVATION: CONCLUSION: Leo protocol completed. Stopped sec to reaching target heart rate and leg fatigue. Maximum NG=644 Max HR Achieved=86.0% Maximum PK=166/68 Total Exercise Time=3:57. No reprod chest denita n. Baseline t wave flattening. Minimal st depression inferior and lateral at peak. Normal bp response . Good exercise tolerance. Recovery st depression continued inferiorly and lateral with t wave invers ions. St depression resolved within 2.5 minutes. COMMENTS: At peak of exercise inferior ST depression noted. No chest pain was present. Nuclea r imaging will be done for further evaluation.
== END 2018-09-10 18:44 | disposition home or self-care (01) ==
LOC: NEPC 15:54 → NEDA 15:54 → NEPFCDU 20:05
DX: I10 Essential (primary) hypertension; K21.9 Gastro-esophageal reflux disease without esophagitis; Z79.84 Long term (current) use of oral hypoglycemic drugs; F17.210 Nicotine dependence, cigarettes, uncomplicated; R07.9 Chest pain, unspecified; Z85.6 Personal history of leukemia; E78.5 Hyperlipidemia, unspecified; I25.2 Old myocardial infarction; E11.9 Type 2 diabetes mellitus without complications; G47.30 Sleep apnea, unspecified
CPT/HCPCS: 71020; 71046; 78452; 80053; 82550; 83520; 83880; 84484; 85025; 93005; 93017; 99285; A9502; G0378; J2785; Q9969